=== PATIENT | male | born 1975 | race Two or more races ===

== ENCOUNTER 2018-11-25 09:49 | Emergency (ER) | payer OTHER ==
[2018-11-25 10:01] VITALS: BMI 22.2
--- NOTE | 2018-11-25 10:43 | PDOC ---
History of Present Illness - History of Present Illness Initial Comments: Mr. Mitchell is a 43 y/o male with PMH significant for alcohol abuse and recurrent pancreatitis, DM, HTN. Reports that he drinks approx. 12-16 beers per day. Reports that he has had recurrent pancreatitis for the past two years. He began having diarrhea two days ago, and this morning started having epigastric pain radiating to his back, nausea, and vomiting NBNB. Denies chest pain/shortness of breath. Denies back pain. <Tao Sanches - Last Filed: 11/25/18 16:05> <Schuyler Odonnell - Last Filed: 11/28/18 08:01> - General Chief Complaint: Pain Stated Complaint: ABD PAIN Time Seen by Provider: 11/25/18 10:11 Past History - Past Medical History COPD: No Diabetes: Yes (IDDM) GI Disorders: Yes (pancreatitis) HTN: Yes - Psycho Social/Smoking Cessation Hx Smoking History: Current every day smoker Have you smoked in the past 12 months: Yes Number of Cigarettes Smoked Daily: 20 Information on smoking cessation initiated: No Hx Alcohol Use: No Drug/Substance Use Hx: No <Tao Sanches - Last Filed: 11/25/18 16:05> <Schuyler Odonnell - Last Filed: 11/28/18 08:01> - Past Medical History Allergies/Adverse Reactions: Allergies Allergy/AdvReac Type Severity Reaction Status Date / Time No Known Allergies Allergy Verified 11/25/18 20:22 Home Medications: Ambulatory Orders Carvedilol 12.5 mg PO BID 11/25/18 Insulin Glargine,Hum.rec.anlog [Basaglar Kwikpen U-100] 15 unit SQ DAILY Insulin Lispro [Admelog] 0 unit SQ TID 11/25/18 traZODone HCL [Trazodone HCl] 75 mg PO HS 11/25/18 Review of Systems - Review of Systems Comments:: ROS GENERAL/CONSTITUTIONAL: No fever or chills. No weakness._ HEAD, EYES, EARS, NOSE AND THROAT: No change in vision. No change in hearing. No sore throat._ CARDIOVASCULAR: No chest pain or shortness of breath_ RESPIRATORY: Denies cough, hemoptysis_ GASTROINTESTINAL: Reports nausea, vomiting, abdominal pain, diarrhea. Denies constipation._ GENITOURINARY: No dysuria, frequency, or change in urination._ MUSCULOSKELETAL: No joint or muscle swelling or pain. No neck or back pain._ SKIN: No rash_ NEUROLOGIC: No headache, vertigo, loss of consciousness, or change in strength/ sensation._ ENDOCRINE: No increased thirst. No abnormal weight change_ HEMATOLOGIC/LYMPHATIC: No anemia, easy bleeding, or history of blood clots._ ALLERGIC/IMMUNOLOGIC: No hives or skin allergy._ <Tao Sanches - Last Filed: 11/25/18 16:05> *Physical Exam - Vital Signs Last Vital Signs Temp Pulse Resp BP Pulse Ox 97.8 F 94 H 20 164/112 H 99 11/25/18 09:53 11/25/18 09:53 11/25/18 09:53 11/25/18 09:53 11/25/18 09:53 - Physical Exam Comments: GENERAL: Awake, alert, and oriented to person/place/time, in no acute distress_ HEAD: No signs of trauma, normocephalic, atraumatic _ EYES: PERRLA, EOMI, sclera anicteric, conjunctiva clear_ ENT: Hearing grossly normal, nares patent, oropharynx clear without exudates. No uvular deviation. Moist mucosa_ NECK: Normal ROM, supple, no lymphadenopathy, JVD, or masses_ LUNGS: No distress, speaks in full sentences, clear to auscultation bilaterally _ HEART: Regular rate and rhythm, normal S1 and S2, no murmurs appreciated, peripheral pulses normal and equal bilaterally._ ABDOMEN: Soft, TTP epigastric and LUQ. No guarding, no rebound. No masses_ EXTREMITIES: Normal inspection, Normal range of motion, no edema. No clubbing or cyanosis_ NEUROLOGICAL: Cranial nerves II through XII grossly intact. Normal speech, normal gait, no focal sensorimotor deficits _ SKIN: Warm, Dry, normal turgor, no rashes or lesions noted_ <Tao Sanches - Last Filed: 11/25/18 16:05> - Vital Signs Last Vital Signs Temp Pulse Resp BP Pulse Ox 98.1 F 98 H 20 144/89 99 11/25/18 16:40 11/25/18 16:40 11/25/18 16:40 11/25/18 16:40 11/25/18 16:40 <Schuyler Odonnell - Last Filed: 11/28/18 08:01> ED Treatment Course - LABORATORY CBC & Chemistry Diagram: 11/25/18 10:21 11/25/18 10:21 - RADIOLOGY Radiology Studies Ordered: Category Date Time Status ABDOMEN US -LIMITED [US] Stat Ultrasound 11/25/18 10:29 Ordered <Tao Sanches - Last Filed: 11/25/18 16:05> - LABORATORY CBC & Chemistry Diagram: 11/25/18 10:21 11/25/18 10:21 - ADDITIONAL ORDERS Additional order review: 11/25/18 10:21 RBC 5.31 MCV 88.7 MCHC 34.7 RDW 14.4 MPV 8.0 Neutrophils % 54.6 Lymphocytes % 33.0 Monocytes % 11.0 H Eosinophils % 0.8 Basophils % 0.6 - Medications Given in the ED: ED Medications Discontinued Medications Generic Name Dose Route Start Last Admin Trade Name Freq PRN Reason Stop Dose Admin Acetaminophen 1,000 mg 11/25/18 10:57 11/25/18 11:02 Ofirmev Injection - IVPB 11/25/18 10:58 1,000 mg ONCE ONE Administration Al Hydroxide/Mg Hydroxide 30 ml 11/25/18 13:26 11/25/18 13:54 Mylanta Oral Suspension - PO 11/25/18 13:27 30 ml ONCE ONE Administration Sodium Chloride 1,000 mls @ 1,000 mls/hr 11/25/18 11:35 11/25/18 12:20 Normal Saline - IV 11/25/18 12:34 1,000 mls/hr ASDIR STA Administration Famotidine/Sodium Chloride 20 mg in 50 mls @ 100 mls/hr 11/25/18 13:26 13:54 Pepcid 20 Mg Premixed Ivpb - IVPB 11/25/18 13:55 100 mls/hr ONCE ONE Administration Morphine Sulfate 2 mg 11/25/18 12:42 11/25/18 12:50 Morphine Injection - IVPUSH 11/25/18 12:43 2 mg ONCE ONE Administration Morphine Sulfate 2 mg 11/25/18 14:18 11/25/18 14:50 Morphine Injection - IVPUSH 11/25/18 14:19 2 mg ONCE ONE Administration Ondansetron HCl 4 mg 11/25/18 11:35 11/25/18 12:20 Zofran Injection IVPB 11/25/18 11:36 4 mg ONCE ONE Administration <Schuyler Odonnell - Last Filed: 11/28/18 08:01> Medical Decision Making - Medical Decision Making 11/25/18 10:40 43M with hx of alcohol abuse, recurrent pancreatitis, DM, HTN, presenting with epigastric abdominal pain, nausea, and vomiting that started this morning. Associated with 2 days of diarrhea. DDx includes likely pancreatitis vs less likely gallstones vs less likely gastritis. Obtain CBC, CMP, lipase, EKG, trop, RUQ U/S. 11/25/18 1100 EKG shows NSR, 92 bpm, no ST elevation/depression, no axis deviation, QTc 427. 11/25/18 1500 Labs reviewed. Lipase wnl. RUQ US does not show any findings of pancreatitis. Spoke with DEONNA Le - two weeks ago patient presented with similar. No obvious findings of pancreatitis on CT. Lipase wnl. 11/25/18 15:[address] Deng who agrees to accept the patient for detox at [facility]. <Tao Sanches - Last Filed: 11/25/18 16:05> Discharge - Discharge Information Problems reviewed: Yes - Admission No <Tao Sanches - Last Filed: 11/25/18 16:05> <Schuyler Odonnell - Last Filed: 11/28/18 08:01> - Discharge Information Clinical Impression/Diagnosis: Epigastric abdominal pain, Alcohol use disorder, Chronic pancreatitis Condition: Stable Disposition: HOME - Follow up/Referral Referrals: ON STAFF,NOT [Primary Care Provider] - - Patient Discharge Instructions Patient Printed Discharge Instructions: DI for Alcohol Abuse Additional Instructions: Please continue to avoid fatty foods or other foods that may aggravate your abdominal pain. You have been accepted into [facility] for detox treatment after discharge. Please participate in their program to assist you in decreasing your alcohol use. If you experience any new, worsening, or concerning symptoms, including severe abdominal pain, nausea, vomiting, blood in the vomit, loss or changes of consciousness, or any other symptoms, please return to the emergency room. - Post Discharge Activity
--- NOTE | 2018-11-25 10:55 | PDOC ---
Documentation entered by Segundo Yeboah SCRIBE, acting as scribe for Schuyler Odonnell MD. Schuyler Odonnell MD: This documentation has been prepared by the Obinna will Xhesika, SCRIBE, under my direction and personally reviewed by me in its entirety. I confirm that the documentation accurately reflects all work, treatment, procedures, and medical decision making performed by me. Attending Attestation - Resident Resident Name: Tao Sanches - ED Attending Attestation I have performed the following: I have examined & evaluated the patient, The case was reviewed & discussed with the resident, I agree w/resident's findings & plan, Exceptions are as noted - HPI HPI: 11/25/18 10:26 The patient is a 43 year old male with a significant PMH of alcohol abuse (16 beers per day), HTN, DM, and chronic pancreatitis who presents to the emergency department for epigastric pain x1 day. The patient notes the pain radiates to his back and is associated with nausea and vomiting. Patient also endorses diarrhea for the past couple days. Patient notes this pain is similar to his past episodes of pancreatitis. The patient denies chest pain, shortness of breath, headache and dizziness. Denies fever, chills, cough, and constipation. Denies dysuria, frequency, urgency and hematuria. Allergies: NKDA Past surgical history: Hip replacement Social history: alcohol abuse (16 beers per day) - Physicial Exam PE: 11/25/18 10:27 GENERAL: Awake, alert, and fully oriented, in no acute distress. HEAD: No signs of trauma EYES: PERRLA, EOMI, sclera anicteric, conjunctiva clear ENT: Auricles normal inspection, hearing grossly normal, nares patent, oropharynx clear without exudates. Moist mucosa NECK: Nontender, no stepoffs, Normal ROM, supple, no lymphadenopathy, JVD, or masses LUNGS: Breath sounds equal, clear to auscultation bilaterally. No wheezes, and no crackles HEART: Regular rate and rhythm, normal S1 and S2, no murmurs, rubs or gallops ABDOMEN: + epigastric TTP, normoactive bowel sounds. No guarding, no rebound. No masses EXTREMITIES: Normal range of motion, no edema. No clubbing or cyanosis. No cords, erythema, or tenderness NEUROLOGICAL: Cranial nerves II through XII intact. 5/5 strength and sensation in all extremities, Normal speech, normal gait, normal cerebellar function SKIN: Warm, Dry, normal turgor, no rashes or lesions noted. - Medical Decision Making 11/25/18 11:15 43 M with epigastric pain consistent with previous episodes of pancreatitis. - Labs - IVF, pain control 11/25/18 15:41 Labs, US negative Pt reassessed - pain is now well controlled Pt tolerated PO - sandwich and 3 juices Requesting detox, will send to [facility] Pt is well appearing, with normal vitals. Clinically stable for DC at this time. I discussed the physical exam findings, ancillary test results and final diagnoses with the patient. I answered all of the patient's questions. The patient was satisfied with the care received and felt comfortable with the discharge plan and treatment plan. The patient agrees to follow up with the primary care physician within 24-72 hours.
[2018-11-25] MEDS ORDERED: ACETAMINOPHEN 1000 MG/100 ML VIAL (NON FORMULARY) IVPB ONE (10:57)
[2018-11-25] MEDS ORDERED: ACETAMINOPHEN INJECTION 100 ML IVPB ONE (10:59)
[2018-11-25 11:00] LABS: BASO % 0.6 % (0-2.0); EOS % 0.8 % (0-4.5); HEMATOCRIT 47.1 % (35.4-49); HEMOGLOBIN 16.4 GM/dL (11.7-16.9); MCH 30.8 pg (25.7-33.7); MCHC 34.7 g/dl (32.0-35.9); MEAN CELL VOLUME 88.7 fl (80-96); NEUT % 54.6 % (42.8-82.8); PLATELET COUNT 137 K/MM3 (134-434); RBC 5.31 M/mm3 (4.00-5.60); RDW 14.4 % (11.9-15.9); WHITE BLOOD COUNT 6.5 K/mm3 (4.0-10.0)
[2018-11-25 11:26] LABS: ALBUMIN 3.8 g/dl (3.4-5.0); ALK PHOS 78 U/L (45-117); ANION GAP 9 MMOL/L (8-16); BILIRUBIN,TOTAL 1.2 mg/dL (0.2-1); BLOOD UREA NITROGEN 13.8 mg/dL (7-18); CALCIUM 8.4 mg/dL (8.5-10.1); CHLORIDE 103 mmol/L (98-107); CO2 24 mmol/L (21-32); GLUCOSE,RANDOM 169 mg/dL (74-106); POTASSIUM 4.6 mmol/L (3.5-5.1); SGOT/AST 93 U/L (15-37); SGPT/ALT 73 U/L (13-61); SODIUM 136 mmol/L (136-145); TOT PROT 7.5 g/dl (6.4-8.2)
[2018-11-25] MEDS ORDERED: ONDANSETRON 4 MG/2 ML VIAL IVPB ONE (11:35)
[2018-11-25] MEDS ORDERED: SODIUM CHLORIDE 1,000 ML IV STA (11:35)
[2018-11-25] MEDS ORDERED: ONDANSETRON 4 MG/2 ML VIAL ONE (11:36)
[2018-11-25] MEDS ORDERED: morphine CARPU-JECT 2 MG/1 ML DISP.SYRIN IVPUSH ONE ×2 (12:42→14:18)
[2018-11-25] MEDS ORDERED: MORPHINE SULFATE 2 MG/ML VIAL ONE ×2 (12:45→14:47)
[2018-11-25] MEDS ORDERED: FAMOTIDINE 20 MG/50 ML IVPB 20 MG/50 ML MG IVPB ONE ×2 (13:26→13:44)
[2018-11-25] MEDS ORDERED: MAG HYDROX/AL HYDROX/SIMETH 30 ML UNIT-DOSE CUP PO ONE (13:26)
[2018-11-25] MEDS ORDERED: MAG HYDROX/AL HYDROX/SIMETH 30 ML UNIT-DOSE CUP ONE (13:44)
[2018-11-25 16:53] VITALS: BP 144/89; PULSE 98; TEMP 98.1
--- NOTE | 2018-11-26 12:11 | EKG ---
Test Reason : Blood Pressure : / mmHG Vent. Rate : 092 BPM Atrial Rate : 092 BPM P-R Int : 132 ms QRS Dur : 086 ms QT Int : 346 ms P-R-T Axes : 069 054 044 degrees QTc Int : 427 ms NORMAL SINUS RHYTHM NORMAL ECG NO PREVIOUS ECGS AVAILABLE Confirmed by Tao Ronquillo MD ([id number]) on 11/26/2018 12:11:16 PM Referred By: Confirmed By:Tao Ronquillo MD
== END 2018-11-25 17:15 | disposition home or self-care (01) ==
LOC: JER 09:49
PROC: 3E033GC Introduction of Other Therapeutic Substance into Peripheral Vein, Percutaneous Approach (ICD-10-PCS; principal; 2018-11-25)
PROC: 3E033GC Introduction of Other Therapeutic Substance into Peripheral Vein, Percutaneous Approach (ICD-10-PCS; 2018-11-25)
PROC: 3E033NZ Introduction of Analgesics, Hypnotics, Sedatives into Peripheral Vein, Percutaneous Approach (ICD-10-PCS; 2018-11-25)
PROC: 3E033NZ Introduction of Analgesics, Hypnotics, Sedatives into Peripheral Vein, Percutaneous Approach (ICD-10-PCS; 2018-11-25)
PROC: 3E033NZ Introduction of Analgesics, Hypnotics, Sedatives into Peripheral Vein, Percutaneous Approach (ICD-10-PCS; 2018-11-25)
DX: R10.13 Epigastric pain (principal); I10 Essential (primary) hypertension; E11.9 Type 2 diabetes mellitus without complications; Z79.4 Long term (current) use of insulin; K86.1 Other chronic pancreatitis; F10.10 Alcohol abuse, uncomplicated
CPT/HCPCS: 36415; 76705-TC; 80053; 82550; 83690; 84484; 85025; 93005; 93010; 96365; 96375; 96376; 99282-25; J0131; J7030

== ENCOUNTER 2018-11-25 18:58 | Inpatient (IN) | payer OTHER ==
[2018-11-25 20:28] VITALS: BMI 21.5
--- NOTE | 2018-11-25 22:52 | HP ---
CIWA Score Nausea/Vomitin-Mild Nausea/No Vomiting Muscle Tremors: 4-Moderate,w/Arms Extend Anxiety: 4-Mod. Anxious/Guarded Agitation: 4-Moderately Restless Paroxysmal Sweats: 3 Orientation: 0-Oriented Tacttile Disturbances: 0-None Auditory Disturbances: 0-None Visual Disturbances: 0-None Headache: 0-None Present CIWA-Ar Total Score: 16 - Admission Criteria OASAS Guidelines: Admission for Medically Managed Detox: Requires at least one of the followin. CIWA greater than 12 2. Seizures within the past 24 hours 3. Delirium tremens within the past 24 hours 4. Hallucinations within the past 24 hours 5. Acute intervention needed for co occurring medical disorder 6. Acute intervention needed for co occurring psychiatric disorder 7. Severe withdrawal that cannot be handled at a lower level of care (continued vomiting, continued diarrhea, abnormal vital signs) requiring intravenous medication and/or fluids 8. Admitting History and Physical - Smoking History Smoking history: Current every day smoker Have you smoked in the past 12 months: Yes Aproximately how many cigarettes per day: 20 - Alcohol/Substance Use Hx Alcohol Use: No Admission ROS [facility] Chief Complaint: Alcohol withdrawal symptom Allergies/Adverse Reactions: Allergies Allergy/AdvReac Type Severity Reaction Status Date / Time No Known Allergies Allergy Verified 11/25/18 20:22 History of Present Illness: 43 years old male with a long history of alcohol dependence is seeking admission to detox. Patient has been in previous detox at [facility] and this is first admission to [facility]. Patient's drug screen is positive for Opioids but he denies opioid use stating that he was at [facility] emergency room today for abdominal pain and was given Morphine. He has medical history of hypertension, Pancreatitis and Diabetes Type 2. He denies suicide attempt or suicidal ideation at this time. Exam Limitations: No Limitations - Ebola screening Have you traveled outside of the country in the last 21 days: No (N) Have you had contact with anyone from an Ebola affected area: No Do you have a fever: No - Review of Systems Constitutional: Loss of Appetite, Malaise, Changes in sleep EENT: reports: No Symptoms Reported Respiratory: reports: No Symptoms reported Cardiac: reports: No Symptoms Reported GI: reports: Poor Appetite, Poor Fluid Intake, Abdominal cramping Integumentary: reports: Dryness, Flushing Neuro: reports: No Symptoms reported Endocrine: reports: No Symptoms Reported Hematology: reports: No Symptoms Reported Psychiatric: reports: Mood/Affect Appropiate, Orientated x3, Anxious Other Systems: Reviewed and Negative Patient History - Patient Medical History Hx Anemia: No Hx Asthma: No Hx Chronic Obstructive Pulmonary Disease (COPD): No Hx Cancer: No Hx Cardiac Disorders: No Hx Congestive Heart Failure: No Hx Hypertension: Yes (Coreg) Hx Hypercholesterolemia: No Hx Pacemaker: No HX Cerebrovascular Accident: No Hx Seizures: No Hx Diabetes: Yes (IDDM) Hx Gastrointestinal Disorders: Yes (pancreatitis) Hx Liver Disease: No Hx Genitourinary Disorders: No Hx Sexually Transmitted Disorders: No Hx Renal Disease (ESRD): No Hx Thyroid Disease: No Hx Human Immunodeficiency Virus (HIV): No (Negative 2017) Hx Hepatitis C: No Hx Depression: Yes Hx Suicide Attempt: No (Denies suicidal ideation at this time) Hx Bipolar Disorder: No Hx Schizophrenia: No - Patient Surgical History Past Surgical History: Yes Hx Neurologic Surgery: No Hx Cataract Extraction: No Hx Cardiac Surgery: No Hx Lung Surgery: No Hx Abdominal Surgery: No Hx Appendectomy: No Hx Cholecystectomy: No Hx Genitourinary Surgery: No Hx Orthopedic Surgery: No (RIGHT TOTAL HIP REPLACEMENT) Hx Hysterectomy: No - PPD History Previous Implant?: Yes Documented Results: Negative w/o proof Implanted On Prior [facility] Admission?: No PPD to be Administered?: Yes - Reproductive History Patient is a Female of Child Bearing Age (11 -55 yrs old): No (male) - Smoking Cessation Smoking history: Current every day smoker Have you smoked in the past 12 months: Yes Aproximately how many cigarettes per day: 20 Hx Chewing Tobacco Use: No Initiated information on smoking cessation: Yes 'Breaking Loose' booklet given: 11/25/18 - Substance & Tx. History Hx Alcohol Use: Yes Hx Substance Use: No Substance Use Type: Alcohol Hx Substance Use Treatment: Yes ([facility] September 2018) - Substances abused Alcohol Substance route: Oral Frequency: Daily Amount used: 12-12 OZ BEERS Age of first use: 16 Date of last use: 11/25/18 Admission Physical Exam BHS - Vital Signs Vital Signs: Vital Signs - 24 hr 11/25/18 20:26 Temperature 98.6 F Pulse Rate 99 H Respiratory 16 Rate Blood Pressure 202/115 H - Physical General Appearance: Yes: Within Normal Limits HEENTM: Yes: Normal ENT Inspection, Normocephalic, Normal Voice, SAE Respiratory: Yes: Lungs Clear, Normal Breath Sounds, No Respiratory Distress Neck: Yes: Supple Breast: Yes: Breast Exam Deferred Cardiology: Yes: Tachycardia Abdominal: Yes: Normal Bowel Sounds, Soft Genitourinary: Yes: Within Normal Limits Back: Yes: Normal Inspection Musculoskeletal: Yes: Within Normal Limits Extremities: Yes: Within Normal Limits, Normal Inspection Neurological: Yes: Within Normal Limits, Alert, Normal Mood/Affect Integumentary: Yes: Within Normal Limits Lymphatic: Yes: Within Normal Limits - Diagnostic (1) Hypertension Current Visit: Yes Status: Chronic Qualifiers: Hypertension type: essential hypertension Qualified Code(s): I10 - Essential (primary) hypertension (2) Pancreatitis Current Visit: Yes Status: Chronic Qualifiers: Pancreatitis type: unspecified pancreatitis type (3) DM type 2 (diabetes mellitus, type 2) Current Visit: Yes Status: Chronic Cleared for Admission S - Detox or Rehab S Level of Care: Medically Managed Detox Regimen/Protocol: Librium Breathalyzer - Breathalyzer Breathalyzer: 0 Urine Drug Screen - Test Device Lot number: [id number] Expiration date: 08/04/20 - Control Is test valid?: Yes - Results Drug screen NEGATIVE: Yes Urine drug screen results: MOP-Opiates, BZO-Benzodiazepines Inpatient Rehab Admission - Rehab Decision to Admit Inpatient rehab admission?: No
[2018-11-25] MEDS ORDERED: MAGNESIUM CITRATE 300 ML BOTTLE PO PRN (23:05)
[2018-11-25] MEDS ORDERED: ACETAMINOPHEN 325 MG TABLET (FP) PO PRN ×2 (23:05)
[2018-11-25] MEDS ORDERED: MAG HYDROX/AL HYDROX/SIMETH 30 ML UNIT-DOSE CUP PO PRN (23:05)
[2018-11-25] MEDS ORDERED: chlordiazePOXIDE HCL 25 MG CAPSULE PO PRN (23:05)
[2018-11-25] MEDS ORDERED: BISMUTH SUBSALICYLATE 524 MG/30 ML UD PO PRN (23:05)
[2018-11-25] MEDS ORDERED: MAGNESIUM HYDROX 2400MG/30ML ORAL SUSPENSION 30 ML CUP PO PRN (23:05)
[2018-11-25] MEDS ORDERED: IBUPROFEN 400 MG TABLET (FP) PO PRN (23:05)
[2018-11-25] MEDS: chlordiazePOXIDE HCL 25 MG CAPSULE PO SCH (23:57)
[2018-11-26] MEDS: MELATONIN 5 MG TABLETS PO PRN ×2 (00:02→22:29)
[2018-11-26] MEDS: chlordiazePOXIDE HCL 25 MG CAPSULE PO SCH ×4 (05:56→22:28)
[2018-11-26] MEDS ORDERED: INSULIN SLIDING SCALE (NOVOLOG) 1 VIAL SQ ONE (07:34)
[2018-11-26] MEDS: INSULIN (LEVEMIR) 100 UNITS/ML UNITS SQ SCH (07:52)
[2018-11-26] MEDS: INSULIN SLIDING SCALE (NOVOLOG) 1 VIAL SQ SCH ×2 (07:53→17:05)
[2018-11-26] MEDS: PRENATAL VITAMINS W/ FOLIC ACID TABLET (FP) PO SCH (10:11)
[2018-11-26] MEDS: CARVEDILOL 12.5 MG TABLET (FP) PO SCH ×2 (10:11→21:24)
[2018-11-26] MEDS: NICOTINE 14 MG/24 HOURS TOPICAL PATCH TD SCH (10:12)
[2018-11-26] MEDS: METHOCARBAMOL 500 MG TABLET PO PRN ×3 (10:13→22:29)
[2018-11-26] MEDS: MENTHOL/PHENOL 1 EACH UD MM PRN ×2 (10:13→14:33)
--- NOTE | 2018-11-26 11:31 | PN ---
S CIWA - CIWA Score Nausea/Vomitin-Mild Nausea/No Vomiting Muscle Tremors: 3 Anxiety: 3 Agitation: 2 Paroxysmal Sweats: 2 Orientation: 0-Oriented Tacttile Disturbances: 0-None Auditory Disturbances: 1-Very Mild Visual Disturbances: 0-None Headache: 1-Very Mild CIWA-Ar Total Score: 13 BHS Progress Note (SOAP) Subjective: doing well with librium detox regimen ate breakfast resting on bed comfortably health teaching on hypertension adherence with medication consistently as primary care provider prescribed Objective: 11/26/18 11:29 Vital Signs Temperature 98.1 F 11/26/18 09:16 Pulse Rate 91 H 11/26/18 09:16 Respiratory Rate 18 11/26/18 09:16 Blood Pressure 153/105 H 11/26/18 09:16 O2 Sat by Pulse Oximetry (%) Laboratory Last Values POC Glucometer 212 UNITS (80-120) 11/26/18 05:55 11/26/18 11:29 lab pending report last dose of antihypertensive medication was yesterday morning Assessment: 11/26/18 11:30 alcohol withdrawal sx Plan: continue librium detox regimen
[2018-11-26 12:05] LABS: HEMATOCRIT 43.8 % (35.4-49); HEMOGLOBIN 14.8 GM/dL (11.7-16.9); MCH 30.7 pg (25.7-33.7); MCHC 33.9 g/dl (32.0-35.9); MEAN CELL VOLUME 90.7 fl (80-96); MEAN PLT VOLUME 8.7 fl (7.5-11.1); PLATELET COUNT 97 K/MM3 (134-434); RBC 4.82 M/mm3 (4.00-5.60); RDW 14.4 % (11.9-15.9); WHITE BLOOD COUNT 3.8 K/mm3 (4.0-10.0)
[2018-11-26 12:20] LABS: ALBUMIN 3.5 g/dl (3.4-5.0); BILIRUBIN,TOTAL 1.5 mg/dL (0.2-1); BLOOD UREA NITROGEN 11.8 mg/dL (7-18); CALCIUM 8.7 mg/dL (8.5-10.1); CREATININE 0.9 mg/dL (0.55-1.3); POTASSIUM 3.6 mmol/L (3.5-5.1); TOT PROT 6.8 g/dl (6.4-8.2)
--- NOTE | 2018-11-26 13:34 | EKG ---
Test Reason : Blood Pressure : / mmHG Vent. Rate : 104 BPM Atrial Rate : 104 BPM P-R Int : 138 ms QRS Dur : 084 ms QT Int : 332 ms P-R-T Axes : 059 060 057 degrees QTc Int : 436 ms SINUS TACHYCARDIA OTHERWISE NORMAL ECG WHEN COMPARED WITH ECG OF 25-NOV-2018 10:44, NO SIGNIFICANT CHANGE WAS FOUND Confirmed by MD Ibrahim Edward ([id number]) on 11/26/2018 1:33:44 PM Referred By: Confirmed By:Grant Ibrahim MD
[2018-11-26] MEDS: NICOTINE POLACRILEX 2 MG GUM BUC PRN (15:54)
--- NOTE | 2018-11-26 17:00 | CONSULT ---
[facility] Psychiatric Consult - Data Date of interview: 11/26/18 Admission source: [facility] Identifying data: First admission to [facility] for this 43 y/o Citizen [place]born male self-referred for detoxification. KINA issues : alcohol, nicotine. Examined at [address] [place] [address]. Patient is , a father of one, domiciled, unemployed and finacially supported by relatives. Substance Abuse History: Discussed with patient. Details in current [facility] report as follows : Smoking history: Current every day smoker. Have you smoked in the past 12 months: Yes. Aproximately how many cigarettes per day: 20. Hx Chewing Tobacco Use: No. Initiated information on smoking cessation: Yes. 'Breaking Loose' booklet given: 11/25/18. - Substance & Tx. History. Hx Alcohol Use: Yes. Hx Substance Use: No. Substance Use Type: Alcohol. Hx Substance Use Treatment: Yes ([facility] September 2018). - Substances abused. Alcohol. Substance route: Oral. Frequency: Daily. Amount used: 12-12 OZ BEERS. Age of first use: 16. Date of last use: 11/25/18 Medical History: Remarkable for hypertension, antecedent of pancreatitis, diabetes mellitus and history of ortosurgery (right total hip replacement). Psychiatric History: Patient denies history of psychiatric hospitalizations, psychiatric OPD care or suicide attempts. Mr Mitchell is prescribed trazodone for insomnia (primary care physician). Physical/Sexual Abuse/Trauma History: Patient denies. Additional Comment: Urine drug screen results: MOP-Opiates, BZO- Benzodiazepines. Noted. Mental Status Exam - Mental Status Exam Alert and Oriented to: Time, Place, Person Cognitive Function: Good Patient Appearance: Well Groomed Mood: Withdrawn Affect: Normal Range Patient Behavior: Fatigued, Appropriate, Cooperative Speech Pattern: Clear, Appropriate Voice Loudness: Normal Thought Process: Intact, Goal Oriented Thought Disorder: Not Present Hallucinations: Denies Suicidal Ideation: Denies Homicidal Ideation: Denies Insight/Judgement: Poor Sleep: Poorly, Difficulty falling asleep Appetite: Good Muscle strength/Tone: Normal Gait/Station: Normal Psychiatric Findings - Problem List ([place] 1, 2,3) (1) Alcohol use disorder Current Visit: Yes Status: Chronic (2) Nicotine dependence Current Visit: Yes Status: Chronic (3) Insomnia Current Visit: Yes Status: Chronic - Initial Treatment Plan Initial Treatment Plan: Psychoeducation. Sleep hygiene. Detoxification. Seroquel 100 mg po hs (patient's request). Side effects/benefits discussed with the patient. Made aware, in particular, of risk of metabolic syndrome. Gave verbal consent to MD. Observation.
[2018-11-26] MEDS: QUEtiapine FUMARATE 100 MG TABLET (FP) PO SCH (21:24)
[2018-11-26] MEDS: THIAMINE HCL 100 MG TABLET (FP) PO SCH (21:24)
[2018-11-26] MEDS ORDERED: traZODone HCL 100 MG TABLET (FP) PO SCH (22:00)
[2018-11-27] MEDS: chlordiazePOXIDE HCL 25 MG CAPSULE PO SCH ×4 (05:32→22:54)
[2018-11-27] MEDS: METHOCARBAMOL 500 MG TABLET PO PRN ×2 (05:35→10:45)
[2018-11-27] MEDS: INSULIN (LEVEMIR) 100 UNITS/ML UNITS SQ SCH (06:34)
[2018-11-27] MEDS: INSULIN SLIDING SCALE (NOVOLOG) 1 VIAL SQ SCH ×3 (06:36→21:27)
[2018-11-27] MEDS ORDERED: INSULIN SLIDING SCALE (NOVOLOG) 1 VIAL SQ ONE (06:36)
[2018-11-27] MEDS: PRENATAL VITAMINS W/ FOLIC ACID TABLET (FP) PO SCH (10:26)
[2018-11-27] MEDS: CARVEDILOL 12.5 MG TABLET (FP) PO SCH ×2 (10:26→21:22)
[2018-11-27] MEDS: NICOTINE 14 MG/24 HOURS TOPICAL PATCH TD SCH (10:26)
[2018-11-27] MEDS: hydrOXYzine PAMOATE 25 MG CAPSULE (FP) PO PRN (10:47)
--- NOTE | 2018-11-27 12:15 | PN ---
[facility] CIWA - CIWA Score Nausea/Vomitin-Mild Nausea/No Vomiting Muscle Tremors: 2 Anxiety: 2 Agitation: 2 Paroxysmal Sweats: 1-Minimal Palms Moist Orientation: 0-Oriented Tacttile Disturbances: 0-None Auditory Disturbances: 0-None Visual Disturbances: 0-None Headache: 1-Very Mild CIWA-Ar Total Score: 9 S Progress Note (SOAP) Subjective: doing well with librium detox regimen report fell around 11/20/18 at home muscle sore from anterior shoulder to superior shoulder no bruise noted muscle spasm x 1 of second encourage warm compress and robaxin Objective: 11/27/18 12:13 Vital Signs Temperature 98.0 F 11/27/18 09:14 Pulse Rate 105 H 11/27/18 09:14 Respiratory Rate 16 11/27/18 09:14 Blood Pressure 130/94 11/27/18 09:14 O2 Sat by Pulse Oximetry (%) Laboratory Last Values WBC 3.8 K/mm3 (4.0-10.0) L 11/26/18 08:40 RBC 4.82 M/mm3 (4.00-5.60) 11/26/18 08:40 Hgb 14.8 GM/dL (11.7-16.9) 11/26/18 08:40 Hct 43.8 % (35.4-49) 11/26/18 08:40 MCV 90.7 fl (80-96) 11/26/18 08:40 MCH 30.7 pg (25.7-33.7) 11/26/18 08:40 MCHC 33.9 g/dl (32.0-35.9) 11/26/18 08:40 RDW 14.4 % (11.9-15.9) 11/26/18 08:40 Plt Count 97 K/MM3 (134-434) L D 11/26/18 08:40 MPV 8.7 fl (7.5-11.1) 11/26/18 08:40 Sodium 138 mmol/L (136-145) 11/26/18 08:40 Potassium 3.6 mmol/L (3.5-5.1) 11/26/18 08:40 Chloride 100 mmol/L (98-107) 11/26/18 08:40 Carbon Dioxide 30 mmol/L (21-32) 11/26/18 08:40 Anion Gap 8 MMOL/L (8-16) 11/26/18 08:40 BUN 11.8 mg/dL (7-18) 11/26/18 08:40 Creatinine 0.9 mg/dL (0.55-1.3) 11/26/18 08:40 Est GFR (CKD-EPI)AfAm 119.97 11/26/18 08:40 Est GFR (CKD-EPI)NonAf 103.51 11/26/18 08:40 POC Glucometer 347 UNITS (80-120) 11/27/18 05:31 Random Glucose 211 mg/dL (74-106) H 11/26/18 08:40 Calcium 8.7 mg/dL (8.5-10.1) 11/26/18 08:40 Total Bilirubin 1.5 mg/dL (0.2-1) H 11/26/18 08:40 AST 63 U/L (15-37) H 11/26/18 08:40 ALT 61 U/L (13-61) 11/26/18 08:40 Alkaline Phosphatase 71 U/L (45-117) 11/26/18 08:40 Total Protein 6.8 g/dl (6.4-8.2) 11/26/18 08:40 Albumin 3.5 g/dl (3.4-5.0) 11/26/18 08:40 RPR Titer Nonreactive (NONREACTIVE) 11/26/18 08:40 lab noted glucose elevation fasting glucose Assessment: 11/27/18 12:16 alcohol withdrawal sx Plan: continue librium detox regimen
[2018-11-27] MEDS: MENTHOL/PHENOL 1 EACH UD MM PRN (16:53)
[2018-11-27] MEDS ORDERED: INSULIN SLIDING SCALE (NOVOLOG) 1 VIAL SQ SCH (17:44)
--- NOTE | 2018-11-27 17:46 | PN ---
S Progress Note Note: received call from RN pt glucose reads HI on the bgm machine. pt teaching encouraged to drink more water and refrain from sugary juices, pt understands BGM in one hour ordered increase insulin s/s d/c ensure d/t its sugary contents placed pt on NCS diet
[2018-11-27] MEDS: NICOTINE POLACRILEX 2 MG GUM BUC PRN (19:58)
[2018-11-27] MEDS: THIAMINE HCL 100 MG TABLET (FP) PO SCH (21:22)
[2018-11-27] MEDS: QUEtiapine FUMARATE 100 MG TABLET (FP) PO SCH (21:22)
[2018-11-27] MEDS: MELATONIN 5 MG TABLETS PO PRN (21:23)
[2018-11-28] MEDS ORDERED: chlordiazePOXIDE HCL 10 MG CAPSULE PO PRN
[2018-11-28] MEDS: METHOCARBAMOL 500 MG TABLET PO PRN ×2 (05:55→17:25)
[2018-11-28] MEDS: chlordiazePOXIDE HCL 10 MG CAPSULE PO SCH ×4 (05:55→22:27)
[2018-11-28] MEDS ORDERED: INSULIN SLIDING SCALE (NOVOLOG) 1 VIAL SQ ONE (06:17)
[2018-11-28] MEDS ORDERED: INSULIN SLIDING SCALE (NOVOLOG) 1 VIAL SQ SCH (07:00)
[2018-11-28] MEDS ORDERED: INSULIN (NOVOLOG) ASPART 100 UNITS/ML 10ML VIAL SQ SCH (07:00)
[2018-11-28] MEDS: INSULIN (LEVEMIR) 100 UNITS/ML UNITS SQ SCH (07:45)
[2018-11-28] MEDS: INSULIN SLIDING SCALE (NOVOLOG) 1 VIAL SQ SCH ×4 (07:46→21:04)
--- NOTE | 2018-11-28 09:58 | PN ---
[facility] CIWA - CIWA Score Nausea/Vomitin-No Nausea/No Vomiting Muscle Tremors: 2 Anxiety: 2 Agitation: 2 Paroxysmal Sweats: 1-Minimal Palms Moist Orientation: 0-Oriented Tacttile Disturbances: 0-None Auditory Disturbances: 0-None Visual Disturbances: 0-None Headache: 0-None Present CIWA-Ar Total Score: 7 S Progress Note (SOAP) Subjective: doing well with librium detox regimen seen by psychiatrist begin seroquel tolerate well bgm elevatin x 1 since detox admission begin no concentrated sugar diet with glucerna supplement patient understanding the imiportant of dietary regimen Objective: 11/28/18 09:58 Vital Signs Temperature 96 F L 11/28/18 09:23 Pulse Rate 101 H 11/28/18 09:23 Respiratory Rate 20 11/28/18 09:23 Blood Pressure 142/101 H 11/28/18 09:23 O2 Sat by Pulse Oximetry (%) Laboratory Last Values WBC 3.8 K/mm3 (4.0-10.0) L 11/26/18 08:40 RBC 4.82 M/mm3 (4.00-5.60) 11/26/18 08:40 Hgb 14.8 GM/dL (11.7-16.9) 11/26/18 08:40 Hct 43.8 % (35.4-49) 11/26/18 08:40 MCV 90.7 fl (80-96) 11/26/18 08:40 MCH 30.7 pg (25.7-33.7) 11/26/18 08:40 MCHC 33.9 g/dl (32.0-35.9) 11/26/18 08:40 RDW 14.4 % (11.9-15.9) 11/26/18 08:40 Plt Count 97 K/MM3 (134-434) L D 11/26/18 08:40 MPV 8.7 fl (7.5-11.1) 11/26/18 08:40 Sodium 138 mmol/L (136-145) 11/26/18 08:40 Potassium 3.6 mmol/L (3.5-5.1) 11/26/18 08:40 Chloride 100 mmol/L (98-107) 11/26/18 08:40 Carbon Dioxide 30 mmol/L (21-32) 11/26/18 08:40 Anion Gap 8 MMOL/L (8-16) 11/26/18 08:40 BUN 11.8 mg/dL (7-18) 11/26/18 08:40 Creatinine 0.9 mg/dL (0.55-1.3) 11/26/18 08:40 Est GFR (CKD-EPI)AfAm 119.97 11/26/18 08:40 Est GFR (CKD-EPI)NonAf 103.51 11/26/18 08:40 POC Glucometer 331 UNITS (80-120) 11/28/18 05:56 Random Glucose 211 mg/dL (74-106) H 11/26/18 08:40 Calcium 8.7 mg/dL (8.5-10.1) 11/26/18 08:40 Total Bilirubin 1.5 mg/dL (0.2-1) H 11/26/18 08:40 AST 63 U/L (15-37) H 11/26/18 08:40 ALT 61 U/L (13-61) 11/26/18 08:40 Alkaline Phosphatase 71 U/L (45-117) 11/26/18 08:40 Total Protein 6.8 g/dl (6.4-8.2) 11/26/18 08:40 Albumin 3.5 g/dl (3.4-5.0) 11/26/18 08:40 RPR Titer Nonreactive (NONREACTIVE) 11/26/18 08:40 lab noted anxious about the bgm elevation discuss the consequences of bgm elevation Assessment: 11/28/18 09:59 alcohol withdrawal sx Plan: continue librium detox regimen
[2018-11-28] MEDS: PRENATAL VITAMINS W/ FOLIC ACID TABLET (FP) PO SCH (10:18)
[2018-11-28] MEDS: NICOTINE 14 MG/24 HOURS TOPICAL PATCH TD SCH (10:18)
[2018-11-28] MEDS: CARVEDILOL 12.5 MG TABLET (FP) PO SCH ×2 (10:18→21:07)
[2018-11-28] MEDS: MENTHOL/PHENOL 1 EACH UD MM PRN ×2 (10:20→14:41)
[2018-11-28] MEDS: hydrOXYzine PAMOATE 25 MG CAPSULE (FP) PO PRN ×2 (14:41→21:07)
[2018-11-28] MEDS ORDERED: GABAPENTIN 100 MG CAPSULE (FP) PO ONE (19:09)
--- NOTE | 2018-11-28 19:11 | PN ---
S Progress Note Note: Vital Signs Temperature 98.2 F 11/28/18 18:32 Pulse Rate 104 H 11/28/18 18:32 Respiratory Rate 18 11/28/18 18:32 Blood Pressure 150/103 H 11/28/18 18:32 O2 Sat by Pulse Oximetry (%) c/o of feeling anxious refused scheduled librium dose 10 mg and scheduled for coreg at 10pm one time dose gabapentin 100mg continue to monitor
[2018-11-28] MEDS: QUEtiapine FUMARATE 100 MG TABLET (FP) PO SCH (21:07)
[2018-11-28] MEDS: THIAMINE HCL 100 MG TABLET (FP) PO SCH (21:07)
[2018-11-29] MEDS: chlordiazePOXIDE HCL 10 MG CAPSULE PO SCH ×2 (05:48→17:07)
[2018-11-29] MEDS: INSULIN SLIDING SCALE (NOVOLOG) 1 VIAL SQ SCH ×4 (06:23→22:17)
[2018-11-29] MEDS: INSULIN (LEVEMIR) 100 UNITS/ML UNITS SQ SCH (06:24)
[2018-11-29] MEDS ORDERED: INSULIN SLIDING SCALE (NOVOLOG) 1 VIAL SQ ONE (06:25)
[2018-11-29] MEDS: METHOCARBAMOL 500 MG TABLET PO PRN ×2 (07:59→17:10)
[2018-11-29] MEDS: hydrOXYzine PAMOATE 25 MG CAPSULE (FP) PO PRN ×3 (08:00→22:22)
[2018-11-29] MEDS: PRENATAL VITAMINS W/ FOLIC ACID TABLET (FP) PO SCH (09:50)
[2018-11-29] MEDS: CARVEDILOL 12.5 MG TABLET (FP) PO SCH ×2 (09:50→22:16)
[2018-11-29] MEDS: NICOTINE 14 MG/24 HOURS TOPICAL PATCH TD SCH (09:51)
[2018-11-29] MEDS ORDERED: LIDOCAINE 5% TOPICAL PATCH TP ONE (14:24)
[2018-11-29] MEDS ORDERED: diazePAM 5 MG TABLET PO ONE (14:25)
--- NOTE | 2018-11-29 17:39 | PN ---
[facility] CIWA - CIWA Score Nausea/Vomitin-No Nausea/No Vomiting Muscle Tremors: 2 Anxiety: 5 Agitation: 2 Paroxysmal Sweats: 1-Minimal Palms Moist Orientation: 0-Oriented Tacttile Disturbances: 0-None Auditory Disturbances: 0-None Visual Disturbances: 1-Very Mild Sensitivity Headache: 0-None Present CIWA-Ar Total Score: 11 S Progress Note (SOAP) Subjective: Anxious (Severe), Body Aches. Objective: PATIENT A & O X 3, OBSERVED AMBULATING ON DETOX UNIT UNASSISTED. IN NO ACUTE DISTRESS. 11/29/18 17:36 Vital Signs Temperature 96.4 F L 11/29/18 13:05 Pulse Rate 86 11/29/18 13:05 Respiratory Rate 18 11/29/18 13:05 Blood Pressure 133/98 11/29/18 13:05 O2 Sat by Pulse Oximetry (%) Laboratory Tests 11/25/18 11/26/18 11/26/18 23:26 05:55 08:40 WBC 3.8 L RBC 4.82 Hgb 14.8 Hct 43.8 MCV 90.7 MCH 30.7 MCHC 33.9 RDW 14.4 Plt Count 97 L D MPV 8.7 Sodium Potassium Chloride Carbon Dioxide Anion Gap BUN Creatinine Est GFR (CKD-EPI)AfAm Est GFR (CKD-EPI)NonAf POC Glucometer 347 212 Random Glucose Fasting Glucose Calcium Total Bilirubin AST ALT Alkaline Phosphatase Total Protein Albumin RPR Titer 11/26/18 11/26/18 11/26/18 08:40 08:40 16:17 WBC RBC Hgb Hct MCV MCH MCHC RDW Plt Count MPV Sodium 138 Potassium 3.6 Chloride 100 Carbon Dioxide 30 Anion Gap 8 BUN 11.8 Creatinine 0.9 Est GFR (CKD-EPI)AfAm 119.97 Est GFR (CKD-EPI)NonAf 103.51 POC Glucometer 347 Random Glucose 211 H Fasting Glucose Calcium 8.7 Total Bilirubin 1.5 H AST 63 H ALT 61 Alkaline Phosphatase 71 Total Protein 6.8 Albumin 3.5 RPR Titer Nonreactive 11/27/18 11/27/18 11/27/18 05:31 16:17 18:40 WBC RBC Hgb Hct MCV MCH MCHC RDW Plt Count MPV Sodium Potassium Chloride Carbon Dioxide Anion Gap BUN Creatinine Est GFR (CKD-EPI)AfAm Est GFR (CKD-EPI)NonAf POC Glucometer 347 > 600 456 Random Glucose Fasting Glucose Calcium Total Bilirubin AST ALT Alkaline Phosphatase Total Protein Albumin RPR Titer 11/27/18 11/27/18 11/28/18 21:14 21:17 05:56 WBC RBC Hgb Hct MCV MCH MCHC RDW Plt Count MPV Sodium Potassium Chloride Carbon Dioxide Anion Gap BUN Creatinine Est GFR (CKD-EPI)AfAm Est GFR (CKD-EPI)NonAf POC Glucometer [phone] Random Glucose Fasting Glucose Calcium Total Bilirubin AST ALT Alkaline Phosphatase Total Protein Albumin RPR Titer 11/28/18 11/28/18 11/28/18 08:15 11:47 16:22 WBC RBC Hgb Hct MCV MCH MCHC RDW Plt Count MPV Sodium Potassium Chloride Carbon Dioxide Anion Gap BUN Creatinine Est GFR (CKD-EPI)AfAm Est GFR (CKD-EPI)NonAf POC Glucometer 401 143 Random Glucose Fasting Glucose 334 H Calcium Total Bilirubin AST ALT Alkaline Phosphatase Total Protein Albumin RPR Titer 11/28/18 11/28/18 11/29/18 20:50 20:52 05:46 WBC RBC Hgb Hct MCV MCH MCHC RDW Plt Count MPV Sodium Potassium Chloride Carbon Dioxide Anion Gap BUN Creatinine Est GFR (CKD-EPI)AfAm Est GFR (CKD-EPI)NonAf POC Glucometer [phone] Random Glucose Fasting Glucose Calcium Total Bilirubin AST ALT Alkaline Phosphatase Total Protein Albumin RPR Titer 11/29/18 11/29/18 11:46 16:52 WBC RBC Hgb Hct MCV MCH MCHC RDW Plt Count MPV Sodium Potassium Chloride Carbon Dioxide Anion Gap BUN Creatinine Est GFR (CKD-EPI)AfAm Est GFR (CKD-EPI)NonAf POC Glucometer [phone] Random Glucose Fasting Glucose Calcium Total Bilirubin AST ALT Alkaline Phosphatase Total Protein Albumin RPR Titer LABS NOTED. Assessment: 11/29/18 17:36 WITHDRAWAL SYMPTOMS. HYPERBILIRUBINEMIA. ELEVATED AST LEVEL. THROMBOCYTOPENIA. 11/29/18 17:37 Plan: CONTINUE DETOX. DUE TO APPARENT SEVERITY OF ANXIETY LEVEL, ONE-TIME DOSE OF VALIUM (5 MG PO) ORDERED. LIDODERM PATCH FOR UPPER BACK PAIN. PATIENT SCHEDULED FOR D/C FROM DETOX UNIT TOMORROW.
[2018-11-29] MEDS ORDERED: LIDOCAINE PATCH REMOVAL MC SCH (22:00)
[2018-11-29] MEDS: QUEtiapine FUMARATE 100 MG TABLET (FP) PO SCH (22:16)
[2018-11-29] MEDS: THIAMINE HCL 100 MG TABLET (FP) PO SCH (22:17)
[2018-11-29] MEDS: MELATONIN 5 MG TABLETS PO PRN (22:20)
[2018-11-30] MEDS ORDERED: chlordiazePOXIDE HCL 10 MG CAPSULE PO ONE (05:00)
[2018-11-30] MEDS: METHOCARBAMOL 500 MG TABLET PO PRN (05:26)
[2018-11-30] MEDS: hydrOXYzine PAMOATE 25 MG CAPSULE (FP) PO PRN (05:27)
[2018-11-30] MEDS ORDERED: INSULIN SLIDING SCALE (NOVOLOG) 1 VIAL SQ ONE (06:32)
[2018-11-30] MEDS: INSULIN SLIDING SCALE (NOVOLOG) 1 VIAL SQ SCH (07:01)
[2018-11-30] MEDS: INSULIN (LEVEMIR) 100 UNITS/ML UNITS SQ SCH (07:01)
[2018-11-30 10:00] VITALS: BP 124/92; PULSE 97; TEMP 96.3
[2018-11-30] MEDS: PRENATAL VITAMINS W/ FOLIC ACID TABLET (FP) PO SCH (10:33)
[2018-11-30] MEDS: NICOTINE 14 MG/24 HOURS TOPICAL PATCH TD SCH (10:33)
[2018-11-30] MEDS: CARVEDILOL 12.5 MG TABLET (FP) PO SCH (10:33)
--- NOTE | 2018-11-30 18:13 | DS ---
[facility] Detox Discharge Summary Admission Date: 11/25/18 Discharge Date: 11/30/18 - History Present History: Alcohol Dependence Additional Comments: PATIENT GOING HOME THE WEEKEND, WILL APPLY FOR ADMISSION TO [facility] ( [place], [place]) ON 12/02/2018. PATIENT DECLINED OFFER OF MEDICATION PRESCRIPTION FOR HOME MEDICATION AT TIME OF DISCHARGE FROM DETOX, NOTING THAT HE CURRENTLY HAS ADEQUATE SUPPLIES OF ALL PRESCRIBED HOME MEDICATIONS AT HOME. PATIENT WAS DISCHARGED FROM DETOX UNIT IN STABLE MEDICAL CONDITION. Pertinent Past History: Nicotine Dependence, Insomnia, History Of Chronic Pancreatitis, Type II DM, HTN , Depression. - Physical Exam Results Vital Signs: Vital Signs Temperature 96.3 F L 11/30/18 09:59 Pulse Rate 97 H 11/30/18 09:59 Respiratory Rate 18 11/30/18 09:59 Blood Pressure 124/92 11/30/18 09:59 O2 Sat by Pulse Oximetry (%) Pertinent Admission Physical Exam Findings: WITHDRAWAL SYMPTOMS. Laboratory Tests 11/25/18 11/26/18 11/26/18 23:26 05:55 08:40 WBC 3.8 L RBC 4.82 Hgb 14.8 Hct 43.8 MCV 90.7 MCH 30.7 MCHC 33.9 RDW 14.4 Plt Count 97 L D MPV 8.7 Sodium Potassium Chloride Carbon Dioxide Anion Gap BUN Creatinine Est GFR (CKD-EPI)AfAm Est GFR (CKD-EPI)NonAf POC Glucometer 347 212 Random Glucose Fasting Glucose Calcium Total Bilirubin AST ALT Alkaline Phosphatase Total Protein Albumin RPR Titer 11/26/18 11/26/18 11/26/18 08:40 08:40 16:17 WBC RBC Hgb Hct MCV MCH MCHC RDW Plt Count MPV Sodium 138 Potassium 3.6 Chloride 100 Carbon Dioxide 30 Anion Gap 8 BUN 11.8 Creatinine 0.9 Est GFR (CKD-EPI)AfAm 119.97 Est GFR (CKD-EPI)NonAf 103.51 POC Glucometer 347 Random Glucose 211 H Fasting Glucose Calcium 8.7 Total Bilirubin 1.5 H AST 63 H ALT 61 Alkaline Phosphatase 71 Total Protein 6.8 Albumin 3.5 RPR Titer Nonreactive 11/27/18 11/27/18 11/27/18 05:31 16:17 18:40 WBC RBC Hgb Hct MCV MCH MCHC RDW Plt Count MPV Sodium Potassium Chloride Carbon Dioxide Anion Gap BUN Creatinine Est GFR (CKD-EPI)AfAm Est GFR (CKD-EPI)NonAf POC Glucometer 347 > 600 456 Random Glucose Fasting Glucose Calcium Total Bilirubin AST ALT Alkaline Phosphatase Total Protein Albumin RPR Titer 11/27/18 11/27/18 11/28/18 21:14 21:17 05:56 WBC RBC Hgb Hct MCV MCH MCHC RDW Plt Count MPV Sodium Potassium Chloride Carbon Dioxide Anion Gap BUN Creatinine Est GFR (CKD-EPI)AfAm Est GFR (CKD-EPI)NonAf POC Glucometer [phone] Random Glucose Fasting Glucose Calcium Total Bilirubin AST ALT Alkaline Phosphatase Total Protein Albumin RPR Titer 11/28/18 11/28/18 11/28/18 08:15 11:47 16:22 WBC RBC Hgb Hct MCV MCH MCHC RDW Plt Count MPV Sodium Potassium Chloride Carbon Dioxide Anion Gap BUN Creatinine Est GFR (CKD-EPI)AfAm Est GFR (CKD-EPI)NonAf POC Glucometer 401 143 Random Glucose Fasting Glucose 334 H Calcium Total Bilirubin AST ALT Alkaline Phosphatase Total Protein Albumin RPR Titer 11/28/18 11/28/18 11/29/18 20:50 20:52 05:46 WBC RBC Hgb Hct MCV MCH MCHC RDW Plt Count MPV Sodium Potassium Chloride Carbon Dioxide Anion Gap BUN Creatinine Est GFR (CKD-EPI)AfAm Est GFR (CKD-EPI)NonAf POC Glucometer [phone] Random Glucose Fasting Glucose Calcium Total Bilirubin AST ALT Alkaline Phosphatase Total Protein Albumin RPR Titer 11/29/18 11/29/18 11/29/18 11:46 16:52 21:46 WBC RBC Hgb Hct MCV MCH MCHC RDW Plt Count MPV Sodium Potassium Chloride Carbon Dioxide Anion Gap BUN Creatinine Est GFR (CKD-EPI)AfAm Est GFR (CKD-EPI)NonAf POC Glucometer [phone] Random Glucose Fasting Glucose Calcium Total Bilirubin AST ALT Alkaline Phosphatase Total Protein Albumin RPR Titer 11/30/18 05:25 WBC RBC Hgb Hct MCV MCH MCHC RDW Plt Count MPV Sodium Potassium Chloride Carbon Dioxide Anion Gap BUN Creatinine Est GFR (CKD-EPI)AfAm Est GFR (CKD-EPI)NonAf POC Glucometer 344 Random Glucose Fasting Glucose Calcium Total Bilirubin AST ALT Alkaline Phosphatase Total Protein Albumin RPR Titer LABS NOTED. - Treatment Hospital Course: Detox Protocol Followed, Detoxed Safely, Responded well, Discharged Condition Good, Rehab Referral Accepted Patient has Accepted a Rehab Referral to: [facility] ([place], [place]). - Medication Discharge Medications: Ambulatory Orders Carvedilol 12.5 mg PO BID 11/25/18 Insulin Glargine,Hum.rec.anlog [Basaglar Kwikpen U-100] 15 unit SQ DAILY Insulin Lispro [Admelog] 0 unit SQ TID 11/25/18 traZODone HCL [Trazodone HCl] 75 mg PO HS 11/25/18 Quetiapine Fumarate [Seroquel -] 100 mg PO HS #30 tablet 11/30/18 - Diagnosis (1) Chronic pancreatitis Status: Chronic Qualifiers: Pancreatitis type: unspecified pancreatitis type Qualified Code(s): K86.1 - Other chronic pancreatitis (2) Alcohol use disorder Status: Acute (3) DM type 2 (diabetes mellitus, type 2) Status: Chronic Qualifiers: 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: with senior living use Diabetes mellitus complication status: with other specified complication Qualified Code (s): E11.69 - Type 2 diabetes mellitus with other specified complication; Z79.4 - snf (current) use of insulin (4) Hypertension Status: Chronic Qualifiers: Hypertension type: essential hypertension Qualified Code(s): I10 - Essential (primary) hypertension (5) Insomnia Status: Chronic Qualifiers: Insomnia type: unspecified Qualified Code(s): G47.00 - Insomnia, unspecified (6) Nicotine dependence Status: Chronic Qualifiers: Nicotine product type: cigarettes Substance use status: uncomplicated Qualified Code(s): F17.210 - Nicotine dependence, cigarettes, uncomplicated (7) Pancreatitis Status: Chronic Qualifiers: Chronicity: chronic Pancreatitis type: unspecified pancreatitis type Qualified Code(s): K86.1 - Other chronic pancreatitis - AMA Did Patient Leave Against Medical Advice: No [facility] CIWA - CIWA Score Nausea/Vomitin-No Nausea/No Vomiting Muscle Tremors: None Anxiety: 2 Agitation: 1-Slight > Activity Paroxysmal Sweats: No Perspiration Orientation: 0-Oriented Tacttile Disturbances: 0-None Auditory Disturbances: 0-None Visual Disturbances: 0-None Headache: 0-None Present CIWA-Ar Total Score: 3
== END 2018-11-30 11:35 | disposition home or self-care (01) | DRG 775 ==
LOC: YASAS 18:58 → Y3N 23:21
PROVIDERS: ADMIT Allergy & Immunology; ATTEND Allergy & Immunology
PROC: HZ2ZZZZ Detoxification Services for Substance Abuse Treatment (ICD-10-PCS; principal; 2018-11-25)
DX: F10.230 Alcohol dependence with withdrawal, uncomplicated (principal); F17.210 Nicotine dependence, cigarettes, uncomplicated; I10 Essential (primary) hypertension; R00.0 Tachycardia, unspecified; E11.9 Type 2 diabetes mellitus without complications; G47.00 Insomnia, unspecified; E80.6 Other disorders of bilirubin metabolism; R74.0 Nonspecific elevation of levels of transaminase and lactic acid dehydrogenase [LDH]; Z87.19 Personal history of other diseases of the digestive system; Z79.4 Long term (current) use of insulin; Z96.641 Presence of right artificial hip joint
CPT/HCPCS: 36415; 80053; 82947; 82962; 85027; 86593; 93005; 93010